=== PATIENT | female | born 1980 | race Caucasian/White ===

== ENCOUNTER → 2018-02-18 | Outpatient (CLI) | payer OTHER ==
--- NOTE | 2018-02-24 10:58 | MR ---
EXAMINATION TYPE: MR lumbar spine wo con DATE OF EXAM: 02/18/2018 COMPARISON: Outside x-ray from [facility] dated 12/17/2017 HISTORY: Low back pain /Spondylolisthesis TECHNIQUE: T1 and T2 axial and sagittal images of the lumbar spine are submitted. FINDINGS: There is no abnormal signal seen within the visualized spinal cord or paraspinal soft tissu es. Spina bifida occulta at the lumbosacral junction noted. At L1-2 there is no disc herniation or canal stenosis. No foraminal encroachment. At L2-3 there is no disc herniation or canal stenosis. No foraminal encroachment. At L3-4 there is mild facet hypertrophic changes. No disc herniation or canal stenosis. Neural forami na patent. At L4-5 there is no disc herniation or canal stenosis. Neural foramina patent. Very minimal left late ral disc bulging but no nerve root contact. At L5-S1 there is findings are suggestive of spondylolysis with very minimal anterolisthesis measurin g approximately 1 mm. No canal stenosis or disc herniation. Neural foramina remain patent Hypertrophic spurring and degenerative disc disease T11-T12 and T12-L1. IMPRESSION: 1. Spondylolysis L5 with minimal 1 mm anterolisthesis L5 relative to S1. 2. Sagittal degenerative disc disease, hypertrophic spurring and disc bulging T11-T12 and T12-L1 whic h could be correlated with thoracic spine MRI as clinically warranted. 3. Minimal left lateral disc bulging L4-L5 with no evidence of significant foraminal encroachment or nerve root contact.
== END | disposition home or self-care (01) ==
LOC: RADMRIMAIN 14:59
PROVIDERS: ATTEND Family Medicine
DX: M43.16 Spondylolisthesis, lumbar region (principal); M51.24 Other intervertebral disc displacement, thoracic region; M51.25 Other intervertebral disc displacement, thoracolumbar region; M51.26 Other intervertebral disc displacement, lumbar region; M51.36 Other intervertebral disc degeneration, lumbar region
CPT/HCPCS: 72148